=== PATIENT | female | born 1945 | race Caucasian/White ===

== ENCOUNTER 2024-02-18 11:30 | Day surgery (SDC) | payer OTHER ==
[2024-02-13 13:43] VITALS: BMI 25.7
[2024-02-18] MEDS ORDERED: MIDAZOLAM HCL 2 MG/2 ML SINGLE DOSE VIAL ONE (11:34)
[2024-02-18] MEDS ORDERED: TETRACAINE 0.5% OPHTH SOLN 2 ML BOTTLE ONE (12:17)
[2024-02-18] MEDS ORDERED: CARBACHOL 0.01% INTRA-OCULAR 1.5 ML VIAL ONE (12:17)
[2024-02-18] MEDS ORDERED: BSS (NA/CA/MG/K) BALANCED SALT SOLUTION OPHTH SOLN 15 ML BOTTLE ONE (12:17)
[2024-02-18] MEDS ORDERED: EPINEPHrine/PF 1 MG/1 ML (1:1,000) AMPULE ONE (12:17)
[2024-02-18] MEDS ORDERED: LIDOCAINE 1% P/F 10 MG/ML VIAL ONE (12:17)
[2024-02-18] MEDS ORDERED: NEO/POLYMYX B SULF/DEXAMETH OPHTHALMIC 5ML BOTTLE ONE (12:17)
[2024-02-18] MEDS: TROPICAMIDE 1% OPHTH SOLN 15 ML BOTTLE ONE (12:35)
[2024-02-18] MEDS: CIPROFLOXACIN 0.3% EYE DROPS 5 ML BOTTLE ONE (12:35)
[2024-02-18] MEDS: CYCLOPENTOLATE 2% OPHTH SOLN 2 ML BOTTLE ONE (12:35)
[2024-02-18] MEDS: PHENYLEPHRINE 2.5% OPTHALMIC DROP 2ML BOTTLE ONE (12:35)
[2024-02-18 14:39] VITALS: TEMP 98
[2024-02-18 15:02] VITALS: BP 120/60; PULSE 68; RESP 19
== END 2024-02-18 15:00 | disposition home or self-care (01) ==
LOC: FASU 11:30
PROVIDERS: ATTEND Ophthalmology
PROC: 08RJ3JZ Replacement of Right Lens with Synthetic Substitute, Percutaneous Approach (ICD-10-PCS; principal; 2024-02-18 14:03)
DX: H26.8 Other specified cataract (principal)
CPT/HCPCS: 66984; V2632